=== PATIENT | male | born 1980 | race Caucasian/White ===

== ENCOUNTER 2020-11-08 22:50 | Emergency (ER) | payer OTHER ==
[~2020-11-08] VITALS: Ht 188 cm; Wt 86.4 kg
[2020-11-08 23:18] VITALS: BP 115/77
--- NOTE | 2020-11-08 23:27 | ED.ADGEN ---
Past Medical History Past Surgical History: No Surgical History General Adult EDM: Chief Complaint: FINGER INJURY HPI: HPI: Patient is a 40 year old male coming in with right pinky deformity after wrestling with his dogs prior to arrival Review of Systems: Review of Systems: All other systems within normal limits except for as noted in the HPI Allergies: Allergies: Allergies Coded Allergies Type Severity Reaction Last Updated Verified Penicillins Allergy Unknown 11/08/20 Yes Sulfa (Sulfonamide Antibiotics) Allergy Unknown 11/08/20 Yes Physical Exam: PE: Constitutional: Well developed, well nourished, no acute distress, non-toxic appearance. [] HENT: Normocephalic, atraumatic, bilateral external ears normal, nose normal. [] Eyes: PERRLA, conjunctiva normal, no discharge. [] Neck: No rigidity, supple, no stridor. [] Cardiovascular: Regular rate and rhythm, brisk cap refill [] Lungs & Thorax: Non labored symmetric respirations, no tachypnea or respiratory distress [] Abdomen: Soft, nondistended. Skin: Warm, dry, no erythema, no rash. [] Back: Unremarkable Extremities: No deformities, range of motion grossly intact, no lower extremity edema. Deformity of right 5 th finger [] Neurologic: Alert and oriented X 3, no focal deficits noted. [] Psychologic: Affect normal, judgement normal, mood normal. [] Current Patient Data: Vital Signs: Vital Signs Date Time Temp Pulse Resp B/P (MAP) Pulse Ox O2 Delivery O2 Flow Rate FiO2 11/08/20 23:18 98.3 69 20 115/77 98 Room Air 98.3 EKG: EKG: [] Heart Score: C/O Chest Pain: No Risk Factors: Risk Factors: DM, Current or recent (<one month) smoker, HTN, HLP, family history of CAD, obesity. Risk Scores: Score 0 - 3: 2.5% MACE over next 6 weeks - Discharge Home Score 4 - 6: 20.3% MACE over next 6 weeks - Admit for Clinical Observation Score 7 - 10: 72.7% MACE over next 6 weeks - Early Invasive Strategies Radiology/Procedures: Radiology/Procedures: EP interpretation, posterior dislocation at PIP joint. Postreduction film shows successful closed reduction. No fractures Impression: Closed reduction of right pinky dislocation at PIP joint, counter traction and pulled into appropriate location. Patient regained range of motion of the joint. And pain improved, no complication Course & Med Decision Making: Course & Med Decision Making Pertinent Labs and Imaging studies reviewed. (See chart for details) [] Dragon Disclaimer: Dragon Disclaimer: This electronic medical record was generated, in whole or in part, using a voice recognition dictation system. Departure Departure Impression: Primary Impression: Finger dislocation Disposition: HOME / SELF CARE / HOMELESS Condition: STABLE Referrals: NO PCP (PCP) Patient Instructions: Finger Dislocation SELINA LOWE MD Nov 08, 2020 23:27
--- NOTE | 2020-11-09 04:42 | RAD ---
INDICATION: Reason: deformity / Spl. Instructions: / History: COMPARISON: None. IMPRESSION: Right fifth digit of hand: 3 views obtained. Dislocation at the fifth proximal interphalangeal joint. Posterior displacement. Electronically signed by: Elijah Jane MD (11/09/2020 4:39 AM) [id number]
--- NOTE | 2020-11-09 04:43 | RAD ---
INDICATION: Reason: closed reduction / Spl. Instructions: / History: COMPARISON: Earlier same day IMPRESSION: Right fifth digit of hand: 3 views obtained. Improved alignment status post reduction of dislocation at proximal interphalangeal joint. No definite acute fracture Electronically signed by: Elijah Jane MD (11/09/2020 4:40 AM) [id number]
== END 2020-11-09 00:26 | disposition home or self-care (01) ==
LOC: ER 22:50
DX: S63.286A Dislocation of proximal interphalangeal joint of right little finger, initial encounter (principal); Z88.0 Allergy status to penicillin; Z88.2 Allergy status to sulfonamides; X50.9XXA Other and unspecified overexertion or strenuous movements or postures, initial encounter; Y93.72 Activity, wrestling; Y92.89 Other specified places as the place of occurrence of the external cause; Y99.8 Other external cause status
CPT/HCPCS: 26770; 29130; 73140; 99284